=== PATIENT | female | born 1985 | race Caucasian/White ===

== ENCOUNTER 2017-11-30 12:11 | Outpatient (CLI) | END 2017-11-30 17:26 | disposition home or self-care (01) ==

== ENCOUNTER 2017-12-01 16:59 | Outpatient (CLI) | END 2017-12-01 18:05 | disposition home or self-care (01) ==

== ENCOUNTER 2017-12-03 04:58 | Outpatient (CLI) | END 2017-12-03 06:54 | disposition home or self-care (01) ==